=== PATIENT | female | born 1955 | race African-American/Black ===

== ENCOUNTER 2021-08-18 20:58 | Emergency (ER) | payer BC, OTHER ==
[2021-08-18 21:13] VITALS: BMI 37.1
[2021-08-18 22:43] LABS: BASO % 0.7 % (0-2.0); EOS % 0.7 % (0-4.5); HEMATOCRIT 42.1 % (32.4-45.2); LYMPH % 10.9 % (8-40); MCH 31.7 pg (25.7-33.7); MCHC 33.2 g/dl (32.0-36.0); MEAN CELL VOLUME 95.6 fl (80-96); MEAN PLT VOLUME 7.4 fl (7.5-11.1); MONO % 4.3 % (3.8-10.2); NEUT % 83.4 % (42.8-82.8); PLATELET COUNT 313 10^3/uL (134-434); RDW 13.5 % (11.6-15.6); WHITE BLOOD COUNT 10.8 K/mm3 (4.0-10.0)
[2021-08-18 22:52] LABS: EPI CELLS 4 /uL (0-25.1); HYALINE CASTS 0 /uL (0-3.1); URINE APPEARANCE CLEAR; URINE BACTERIA 60 /uL (0-1359); URINE BILIRUBIN NEGATIVE (NEGATIVE); URINE COLOR YELLOW; URINE GLUCOSE (UA) NEGATIVE (NEGATIVE); URINE KETONE NEGATIVE (NEGATIVE); URINE LEUK ESTERASE NEGATIVE (NEGATIVE); URINE NITRITE NEGATIVE (NEGATIVE); URINE PROTEIN NEGATIVE (NEGATIVE); URINE RBC 34 /uL (0-23.9); URINE UROBILINOGEN 0.2 mg/dL (0.2-1.0); URINE WBC 4 /uL (0-25.8)
[2021-08-18 23:02] LABS: BLOOD UREA NITROGEN 14.4 mg/dL (7-18); CALCIUM 9.2 mg/dL (8.5-10.1)
[2021-08-18 23:03] LABS: ALBUMIN 3.9 g/dl (3.4-5.0)
[2021-08-18 23:06] LABS: CREATININE 1.1 mg/dL (0.55-1.3)
[2021-08-18 23:07] LABS: BILIRUBIN,TOTAL 0.4 mg/dL (0.2-1); TOT PROT 7.5 g/dl (6.4-8.2)
[2021-08-18] MEDS ORDERED: ACETAMINOPHEN 1000 MG/100 ML BAG IVPB ONE (23:15)
[2021-08-18] MEDS ORDERED: SODIUM CHLORIDE 1,000 ML IV STA (23:15)
[2021-08-18] MEDS ORDERED: ACETAMINOPHEN INJECTION 100 ML IVPB ONE (23:20)
[2021-08-19] MEDS ORDERED: TAMSULOSIN HCL 0.4 MG CAP PO ONE (01:10)
[2021-08-19] MEDS ORDERED: TAMSULOSIN HCL 0.4 MG CAP ONE (01:14)
[2021-08-19 01:25] VITALS: BP 142/76; PULSE 69; TEMP 97.8
== END 2021-08-19 01:47 | disposition home or self-care (01) ==
LOC: JER 20:58
PROC: 3E0333Z Introduction of Anti-inflammatory into Peripheral Vein, Percutaneous Approach (ICD-10-PCS; principal; 2021-08-18)
PROC: 3E0337Z Introduction of Electrolytic and Water Balance Substance into Peripheral Vein, Percutaneous Approach (ICD-10-PCS; 2021-08-18)
DX: L84 Corns and callosities (principal)
CPT/HCPCS: 36415; 74176-TC; 80053; 81003; 83605; 85025; 87040; 87086; 99284-25

== ENCOUNTER 2021-08-20 04:21 | Day surgery (SDC) | payer BC, OTHER ==
[2021-08-16 14:06] VITALS: BMI 37.1
[2021-08-20] MEDS ORDERED: MIDAZOLAM HCL 2 MG/2 ML SINGLE DOSE VIAL ONE (09:52)
[2021-08-20] MEDS ORDERED: PROPOFOL 20 ML ONE (09:59)
[2021-08-20 11:19] VITALS: BP 141/60; PULSE 57; TEMP 96.6
== END 2021-08-20 12:05 | disposition home or self-care (01) ==
LOC: JASU-SURG 04:21
PROVIDERS: ATTEND Urology
PROC: 0TF4XZZ Fragmentation in Left Kidney Pelvis, External Approach (ICD-10-PCS; principal; 2021-08-20 10:30)
DX: N20.0 Calculus of kidney (principal)

== ENCOUNTER 2021-10-01 05:23 | Day surgery (SDC) | payer BC ==
[2021-09-27 15:30] VITALS: BMI 37.1
[2021-10-01 12:13] VITALS: RESP 18
[2021-10-01] MEDS ORDERED: MIDAZOLAM HCL 2 MG/2 ML SINGLE DOSE VIAL ONE ×2 (13:47→14:19)
[2021-10-01] MEDS ORDERED: PROPOFOL 20 ML ONE (13:47)
[2021-10-01 16:21] VITALS: TEMP 97.1
[2021-10-01 16:23] VITALS: BP 147/87; PULSE 63
== END 2021-10-01 16:15 | disposition home or self-care (01) ==
LOC: JASU-SURG 05:23
PROVIDERS: ATTEND Urology
PROC: 0TF3XZZ Fragmentation in Right Kidney Pelvis, External Approach (ICD-10-PCS; principal; 2021-10-01 14:21)
DX: N20.0 Calculus of kidney (principal)